=== PATIENT | male | born 1950 | race Caucasian/White ===

== ENCOUNTER → 2017-07-18 | Outpatient (CLI) | payer MEDICARE | END | disposition home or self-care (01) | LOC: PCVCCLINIC 11:09 | PROVIDERS: ATTEND Internal Medicine | DX: E78.5 Hyperlipidemia, unspecified (principal); R93.1 Abnormal findings on diagnostic imaging of heart and coronary circulation; G47.33 Obstructive sleep apnea (adult) (pediatric); Z79.82 Long term (current) use of aspirin; Z87.891 Personal history of nicotine dependence | CPT/HCPCS: 80061; 93005 ==

== ENCOUNTER → 2017-07-23 | Outpatient (CLI) | payer MEDICARE ==
[~2017-07-23] MED LIST: REGADENOSON 0.4 MG/5 ML DISP.SYRIN. IV ONE
--- NOTE | 2017-07-23 16:22 | PCVCIMAG ---
APPROVED REPORT Exam: Nuclear Stress Test Indication: ELEVATED CA++ SCORE Patient Location: Out-Patient Stress Nurse: Katharina Santiago RN, Nehal Lehman RN NH Tech:Roshan Patricio [facility] Ht: 5 ft 11 in Wt: 210 lbs BSA: 2.15 m2 HR: 67 bpm BP: 128/62 mmHg BMI: 29.2 Rhythm: NSR, NON SP TWAVE ABN Medical History Medical History: AGE, HYPERLIPIDEMIA, FORMER TOBACCO USE Medications: ASA, Simvastatin Allergies: ANTIHISTAMINES Pretest Chest Pain Characteristics: No chest pain Exercise History: Physically active NM EXAM: Myocardial Perfusion REST/STRESS Imaging Protocol: Rest Tc-99m/Stress Tc-99m 1 day Resting Data Rest SPECT myocardial perfusion imaging was performed in supine position 45 minutes following the intravenous injection of 10.2 mCi of Tc-99m Sestamibi. Time of rest injection: 1000 Date: 07/23/2017 Administration Route: IV Administration Site: Right Hand Pharmacologic Stress Pharmacologic stress test was performed by injecting Regadenoson 0.4 mg IV push followed by the intravenous injection of 35.5 mCi of Tc-99m Sestamibi. Time of stress injection: 1115 Date: 07/23/2017 Administration Route: IV Administration Site: Right Hand Gated Stress SPECT was performed 45 minutes after stress injection. The images were gated to evaluate regional wall motion and calculate left ventricular ejection fraction. Study Data Post stress, the left ventricular ejection was 69%.. SSS: 0 SRS: 1 SDS: 0 TID = 0.94. Perfusion There is a medium area of severely reduced uptake in the basal and mid segment of the inferior wall which is seen on the stress images as well as the resting images. This area thickens and moves normally and is most consistent with attenuation artifact. Wall Motion Normal left ventricular wall motion. Nuclear Conclusion 1. LOW RISK STUDY Interpreted by: Hero Brown MD Electronically Approved: 07/23/2017 16:21:15 Stress Test Details Stress Test: Pharmacologic stress was paired with low level exercise. Reason for pharmacologic stress test: physical limitation. HR Resting HR: 67 bpmMax Heart Rate (APMHR): 153 bpm Max HR Achieved: 102 bpmTarget HR (85% APMHR): 130 bpm % of APMHR: 66 Recovery HR: 77 bpm BP Resting BP: 128/62 mmHg Max BP: 120/64 mmHg ECG Resting ECG: Sinus Rhythm, nonspecific ST-T abnormalities Stress ECG: Sinus Rhythm, nonspecific ST-T abnormalities Recovery ECG: Sinus Rhythm, nonspecific ST-T abnormalities Clinical Reason for Termination: Completed protocol Stress Symptoms: Leg Fatigue Exercise duration: 4 min 00 sec Exercise capacity: 1.6 METs Symptoms resolved during recovery. Stress ECG Conclusion 1. ADEQUATE RESPONSE TO IV LEXISCAN 2. INADEQUATE HEART RATE FOR ECG DIAGNOSIS <Conclusion> 1. ADEQUATE RESPONSE TO IV LEXISCAN 2. INADEQUATE HEART RATE FOR ECG DIAGNOSIS
== END | disposition home or self-care (01) ==
LOC: PCVCIMAG 09:30
PROVIDERS: ATTEND Internal Medicine
DX: E83.59 Other disorders of calcium metabolism (principal); Z87.891 Personal history of nicotine dependence
CPT/HCPCS: 78452; 93017; A9500; J2785